=== PATIENT | male | born 1985 | race American Indian/Alaskan Native ===

== ENCOUNTER 2020-03-14 12:46 | Emergency (ER) | payer SELFPAY ==
[2020-03-14 12:54] VITALS: BP 192/126
--- NOTE | 2020-03-14 13:10 | Event Note ---
ED Screening Note ED Screening Note: pt states his BP has been elevated for the last few days no previous hx of HTN states HTN runs in his family states he has been having CARNEY states today began having left sided CP described as tightness no SOB +nausea no v/d no diphoresis no leg swelling PMHx none no allergies to meds no daily meds +tobacco +ETOH, socially This initial assessment/diagnostic orders/clinical plan/treatment(s) is/are subject to change based on patients health status, clinical progression and re- assessment by fellow clinical providers in the ED. Further treatment and workup at subsequent clinical providers discretion. Patient/guardian urged not to elope from the ED as their condition may be serious if not clinically assessed and managed. Initial orders include: CP protocol
--- NOTE | 2020-03-14 13:52 | XRay Report ---
CHEST 2 VIEWS INDICATION / CLINICAL INFORMATION: Chest Pain. COMPARISON: None available. FINDINGS: SUPPORT DEVICES: None. HEART / MEDIASTINUM: Upper limits normal size/mildly enlarged calcified right hilar/mediastinal lymph nodes. Cardiac silhouette demonstrates no significant abnormality. LUNGS / PLEURA: No significant pulmonary or pleural abnormality. No pneumothorax. ADDITIONAL FINDINGS: No significant additional findings. IMPRESSION: 1. No acute findings. Signer Name: Pedro Burgess MD Signed: 03/14/2020 1:47 PM Workstation Name: [id number]
[2020-03-14 14:47] LABS: Basophils % (Auto) 0.6 % (0.0-1.8); Eosinophils # (Auto) 0.1 K/mm3 (0.0-0.4); Hematocrit 45.8 % (35.5-45.6); Hemoglobin 15.2 gm/dl (11.8-15.2); Lymphocytes # (Auto) 1.9 K/mm3 (1.2-5.4); Lymphocytes % (Auto) 29.8 % (13.4-35.0); Mean Corpuscular HGB Conc 33 % (32-34); Mean Corpuscular Volume 99 fl (84-94); Monocytes # (Auto) 0.8 K/mm3 (0.0-0.8); Monocytes % (Auto) 12.5 % (0.0-7.3); Platelet Count 290 K/mm3 (140-440); Red Blood Count 4.64 M/mm3 (3.65-5.03); Red Cell Distribution Width 14.7 % (13.2-15.2)
[2020-03-14 15:15] LABS: Alanine Aminotransferase 22 units/L (7-56); Albumin 4.3 g/dL (3.9-5); BUN/Creatinine Ratio 10; Blood Urea Nitrogen 9 mg/dL (9-20); Hemolysis Index 14
[2020-03-14] MEDS ORDERED: LIDOCAINE VISCOUS 2% 15 ML ORAL LIQD PO ONE (19:57)
[2020-03-14] MEDS ORDERED: ALUM-MAG HYDROXIDE-SIMETHICONE 200-200-20MG/5ML ORAL LIQD 30 ML PO ONE (19:57)
[2020-03-14] MEDS ORDERED: cloNIDine 0.2 MG TAB PO ONE (19:57)
--- NOTE | 2020-03-14 20:45 | Emergency Department Report ---
ED General Adult HPI - General Chief complaint: Chest Pain Stated complaint: CHEST PAIN, HEADACHE, HIGH BLOOD PRESSURE Time Seen by Provider: 03/14/20 13:08 Source: patient Mode of arrival: Ambulatory Limitations: No Limitations - History of Present Illness Initial comments: Pt is a 34 y/o aam who presents for elevated BP has been elevated for the last few days , no previous hx of HTN, states HTN runs in his family, states he has been having CARNEY 4/10 frontal , aching , states today began having left sided CP described as tightness 3 days ago, there is no SOB, no dizziness no light headedness, no n/v, no diaphoresis, no leg swelling, there are no exacerbating or relieving factors. +tobacco , +ETOH, socially Severity scale (0 -10): 7 - Related Data Previous Rx's Medication Instructions Recorded Last Taken Type Famotidine [Pepcid] 20 mg PO BID #30 tablet 03/14/20 Unknown Rx Ibuprofen [Motrin 800 MG tab] 800 mg PO Q8HR PRN #30 tablet 03/14/20 Unknown Rx Allergies Allergy/AdvReac Type Severity Reaction Status Date / Time No Known Allergies Allergy Unverified 09/04/14 03:38 ED Review of Systems ROS: Stated complaint: CHEST PAIN, HEADACHE, HIGH BLOOD PRESSURE Other details as noted in HPI Constitutional: denies: chills, fever Eyes: denies: eye pain, eye discharge, vision change ENT: denies: ear pain, throat pain Respiratory: denies: cough, shortness of breath, wheezing Cardiovascular: chest pain Endocrine: no symptoms reported Gastrointestinal: abdominal pain (epigastric pressure ). denies: nausea, vom iting, diarrhea, constipation, melena Genitourinary: as per HPI. denies: urgency, dysuria, frequency, hematuria, discharge Musculoskeletal: as per HPI Skin: denies: rash, lesions Neurological: headache. denies: weakness, numbness, paresthesias, confusion, vertigo Psychiatric: as per HPI Hematological/Lymphatic: denies: easy bleeding, easy bruising ED Past Medical Hx - Past Medical History Previous Medical History?: No - Surgical History Past Surgical History?: No - Social History Smoking Status: Current Every Day Smoker Substance Use Type: None - Medications Home Medications: Home Medications Medication Instructions Recorded Confirmed Last Taken Type Famotidine [Pepcid] 20 mg PO BID #30 tablet 03/14/20 Unknown Rx Ibuprofen [Motrin 800 MG tab] 800 mg PO Q8HR PRN #30 tablet 03/14/20 Unknown Rx ED Physical Exam - General Limitations: No Limitations General appearance: alert, in no apparent distress - Head Head exam: Present: atraumatic, normocephalic - Eye Eye exam: Present: normal appearance, EOMI Pupils: Present: normal accommodation - ENT ENT exam: Present: mucous membranes moist - Neck Neck exam: Present: normal inspection, full ROM. Absent: tenderness, lymphadenopathy, thyromegaly - Respiratory Respiratory exam: Present: normal lung sounds bilaterally. Absent: respiratory distress, wheezes, stridor, chest wall tenderness, prolonged expiratory - Cardiovascular Cardiovascular Exam: Present: regular rate, normal rhythm, normal heart sounds. Absent: systolic murmur, diastolic murmur, rubs, gallop - GI/Abdominal GI/Abdominal exam: Present: soft, tenderness (mild epigastrict tenderness to deep palpation), normal bowel sounds. Absent: distended, guarding, rebound, rigid, bruit, hernia - Rectal Rectal exam: Present: deferred - Extremities Exam Extremities exam: Present: normal inspection - Back Exam Back exam: Present: normal inspection, full ROM. Absent: tenderness, CVA tenderness (R), CVA tenderness (L) - Neurological Exam Neurological exam: Present: alert, oriented X3, CN II-XII intact, normal gait - Psychiatric Psychiatric exam: Present: normal affect, normal mood - Skin Skin exam: Present: warm, dry, intact, normal color. Absent: rash ED Course Vital Signs 03/14/20 12:51 Temperature 98.2 F Pulse Rate 84 Respiratory 84 H Rate Blood Pressure 192/126 [Right] O2 Sat by Pulse 98 Oximetry ED Medical Decision Making - Lab Data Result diagrams: 03/14/20 14:05 03/14/20 14:05 Labs 03/14/20 03/14/20 03/14/20 14:05 14:05 17:00 WBC 6.3 RBC 4.64 Hgb 15.2 Hct 45.8 H MCV 99 H MCH 33 H MCHC 33 RDW 14.7 Plt Count 290 Lymph % (Auto) 29.8 [place] % (Auto) 12.5 H Eos % (Auto) 1.0 Baso % (Auto) 0.6 Lymph # (Auto) 1.9 [place] # (Auto) 0.8 Eos # (Auto) 0.1 Baso # (Auto) 0.0 Seg Neutrophils % 56.1 Seg Neutrophils # 3.5 Sodium 138 Potassium 3.6 Chloride 101.5 Carbon Dioxide 28 Anion Gap 12 BUN 9 Creatinine 0.9 Estimated GFR > 60 BUN/Creatinine Ratio 10 Glucose 100 Calcium 9.0 Total Bilirubin 0.40 AST 18 ALT 22 Alkaline Phosphatase 89 Troponin T < 0.010 < 0.010 Total Protein 8.0 Albumin 4.3 Albumin/Globulin Ratio 1.2 - EKG Data EKG shows normal: sinus rhythm Rate: normal - EKG Data When compared to previous EKG there are: previous EKG unavailable Interpretation: normal EKG (NSR no ST Elevated OK ) - Radiology Data Radiology results: report reviewed, image reviewed Findings Reporting MD: Pedro Burgess Dictation Time: March 14, 2020 12:47 Label Cutter: Not available Pet Walker Date: CHEST 2 VIEWS INDICATION / CLINICAL INFORMATION: Chest Pain. COMPARISON: None available. FINDINGS: SUPPORT DEVICES: None. HEART / MEDIASTINUM: Upper limits normal size/mildly enlarged calcified right hilar/mediastinal lymph nodes. Cardiac silhouette demonstrates no significant abnormality. LUNGS / PLEURA: No significant pulmonary or pleural abnormality. No pneumothorax. ADDITIONAL FINDINGS: No significant additional findings. IMPRESSION: 1. No acute findings. Signer Name: Pedro Burgess MD Signed: 03/14/2020 12:47 PM Workstation Name: [id number] - Medical Decision Making CXR: no infiltrates, no opacities, Heart Score: 0, trop < 0.01,x 2, labs normal, ekg: NSR no STEMI interp by ed attending pain now resolved pt is tolerating po intake without n/v , Dx, CP, GERD, HTN Episode. plan: h2 block, nsaid prn, follow up with primary care doctor in 2-3 days. monitor BP daily and record to log and bring in to follow up appointment. Critical care attestation.: If time is entered above; I have spent that time in minutes in the direct care of this critically ill patient, excluding procedure time. ED Disposition Clinical Impression: Single episode of hypertension Chest pain Qualifiers: Chest pain type: unspecified Qualified Code(s): R07.9 - Chest pain, unspecified GERD (gastroesophageal reflux disease) Qualifiers: Esophagitis presence: without esophagitis Qualified Code(s): K21.9 - Gastro- esophageal reflux disease without esophagitis Disposition: TO HOME OR SELFCARE Is pt being admited?: No Does the pt Need Aspirin: No Condition: Stable Instructions: Chest Pain (ED), Gastroesophageal Reflux Disease, Adult, [id number], Nonspecific Chest Pain, Adult, Food Choices for Gastroesophageal Reflux Disease, Adult, [id number], Managing Your Hypertension Prescriptions: Ibuprofen [Motrin 800 MG tab] 800 mg PO Q8HR PRN #30 tablet PRN Reason: pain Famotidine [Pepcid] 20 mg PO BID #30 tablet Referrals: JOSE BARNES MD [Staff Physician] - 3-5 Days Forms: Work/School Release Form(ED) Time of Disposition: 21:10
== END 2020-03-14 21:18 | disposition home or self-care (01) ==
LOC: ED 12:46
DX: K21.9 Gastro-esophageal reflux disease without esophagitis (principal); R07.89 Other chest pain; I10 Essential (primary) hypertension; F17.200 Nicotine dependence, unspecified, uncomplicated; Z79.899 Other long term (current) drug therapy
CPT/HCPCS: 36415; 71046; 80053; 84484; 85025; 93005; 99283